=== PATIENT | male | born 2000 | race Caucasian/White ===

== ENCOUNTER 2019-03-21 11:17 | Day surgery (SDC) | payer OTHER ==
[~2019-03-21 11:17] MED LIST: DEXAMETHASONE SOD PHOSPHATE 10 MG/ML 1 ML VIAL IV ONE; HYDROmorphone 0.5 MG/0.5 ML SYRINGE IVP PRN; LACTATED RINGERS 1,000 ML IV SCH; LIDOCAINE 1% 20 ML VIAL (10MG/ML) FOR IV START INTRADERMA PRN; MIDAZOLAM 2 MG/2 ML VIAL IV PRN; ONDANSETRON 4 MG/2 ML VIAL IVP ONE; SCOPOLAMINE 1.5MG/72HR PATCH TRANSDERM ONE
[2019-03-21] MEDS ORDERED: LACTATED RINGERS 1,000 ML IV ONE ×2 (11:44→16:57)
[2019-03-21] MEDS ORDERED: fentaNYL (PF) 50 MCG/ML 2 ML AMP ONE (13:40)
[2019-03-21] MEDS ORDERED: GLYCOPYRROLATE 0.2 MG/ML 2 ML VIAL ONE (13:40)
[2019-03-21] MEDS ORDERED: LIDOCAINE 1% INJ 10MG/ML (20 ML MDV) ONE (13:40)
[2019-03-21] MEDS ORDERED: MIDAZOLAM 2 MG/2 ML VIAL ONE (13:40)
[2019-03-21] MEDS ORDERED: HYDROmorphone (PF) 1 MG/ML ONE (13:40)
[2019-03-21] MEDS ORDERED: PROPOFOL 10 MG/ML 20 ML VIAL IV ONE (13:40)
[2019-03-21] MEDS ORDERED: SUCCINYLCHOLINE CHLORIDE 100 MG/5 ML SYR IV ONE (13:40)
[2019-03-21] MEDS ORDERED: VECURONIUM 10 MG VIAL IV ONE (13:40)
[2019-03-21] MEDS ORDERED: NEOSTIGMINE 1 MG/ML 10 ML VIAL ONE (13:40)
[2019-03-21] MEDS ORDERED: BUPIVACAINE (PF) 0.5% 30 ML VIAL SQ ONE ×2 (14:19→18:06)
[2019-03-21] MEDS ORDERED: LIDOCAINE 1%-EPI 1:100,000 20 ML VIAL SQ ONE ×2 (14:19→18:06)
[2019-03-21 19:08] VITALS: TEMP 97.7
--- NOTE | 2019-03-21 19:48 | XR ---
EXAMINATION TYPE: XR forearm RT DATE OF EXAM: 03/21/2019 COMPARISON: None HISTORY: Postop TECHNIQUE: 2 views FINDINGS: There are plates and screws fixing midshaft fractures of the radius and ulna. Fragments are in anatomic position. There is a cast. Wrist joint and elbow joint appear intact. IMPRESSION: Anatomic reduction. No complicating process seen.
[2019-03-21 20:20] VITALS: BMI 28.1
[2019-03-21] MEDS ORDERED: HYDROcodone/APAP 5-325MG 1 EACH TAB PO PRN (20:31)
[2019-03-21 20:53] VITALS: BP 161/81; PULSE 64; RESP 18
--- NOTE | 2019-03-22 10:01 | XR ---
Fluoroscopy INDICATION: Pain, open reduction internal fixation FINDINGS: Fluoroscopy time: 33 seconds. Images obtained: 7. IMPRESSIONS: 1. Documentation of fluoroscopy.
--- NOTE | 2019-03-22 17:32 | P.OP ---
Date of Procedure: 03/21/19 Preoperative Diagnosis: Displaced fractures of the right radial and ulnar shafts Postoperative Diagnosis: Displaced fractures of the right radial and ulnar shafts Procedure(s) Performed: Open reduction and internal fixation of right radial and ulnar shaft fractures Implants: [employer] ALPS 3.5 mm small fragment locking plates (2) with locking and cortical screws. Anesthesia: DINO local Surgeon: José Regan Building Equipment Operator #1: Johanny Lima Estimated Blood Loss (ml): 200 Pathology: none sent Condition: stable Disposition: PACU Indications for Procedure: The patient is a 18-year-old male who sustained a displaced fractures of his right radial and ulnar shafts after mechanical fall. Treatment options (and associated risks and benefits) were discussed in the office. Surgical treatment was recommended. In preop, additional questions were addressed and he wished to proceed with surgery. Consent forms were signed. The operative site was confirmed and marked in the preoperative holding area. Description of Procedure: The patient was brought to the operating suite and positioned supine with the right arm on an arm board. All bony prominences were well-padded. General anesthesia was administered uneventfully. Prophylactic IV antibiotics were administered. A tourniquet was placed on the operative limb which was then prepped and draped in standard, sterile fashion. A timeout was performed, confirming patient identifiers, the operative side, the sites and the procedures to be performed: all team members expressed agreement. The limb was exsanguinated with an Esmarch and the tourniquet was inflated. Fractures were visualized with intraoperative fluoroscopy and the fracture levels were marked on the skin. Attention was first turned to the radial shaft fracture. A dorsal Lilly approach was utilized. A longitudinal dorsal incision was marked over the fracture site, in line with the lateral epicondyle and Makenzie's tubercle. The skin was sharply incised and crossing vessels were coagulated as needed with electrocautery. A small superficial sensory nerve was identified crossing the surgical field proximally and was mobilized. Full- thickness skin flaps were elevated. The interval between the ECRB and common digital extensors was identified and the overlying fascia was released. Blunt dissection was used to expose the radius. The superficial radial sensory nerve was identified on the undersurface of the mobile wad and was protected throughout the case. The supinator was identified. This was grossly edematous with central disruption of the muscle belly from the proximal radial fragment as well as some disruption of the proximal fibers near its insertion on the radius. The forearm was maximally pronated and the supinator was subperiosteally elevated to expose the radius. The APL and EPB tendons were identified distally and sharply elevated to expose the distal shaft. The fracture ends were cleaned of hematoma and fibrous tissue. There was a small fragment of comminution that was devoid of soft tissue attachments. This was felt to be nonviable and was removed. The bone ends were grasped with reduction clamps and a manual reduction was performed but anatomic alignment was not able to be obtained. The decision was made to expose reduce the ulna. The dorsal wound was irrigated provisionally stapled closed. A longitudinal incision was marked over the subcutaneous border the ulna. The skin was sharply incised and full-thickness skin flaps were elevated. Small sensory nerves on both the proximal and distal ends of the incision were identif ied, mobilized and protected. The interval between the flexor carpi ulnaris (FCU) and extensor carpi ulnaris (ECU) was developed. The fascia was sharply incised. The FCU muscle belly was also markedly edematous and the distal ulnar fragment was palpable within it. The FCU was elevated off the ulna proximally and distally and the fracture ends were exposed. A small butterfly fragment was identified but still retain good soft tissue attachments. There was note of a short, nondisplaced longitudinal split in the distal fragment. The bone ends were cleaned of hematoma and fibrous tissue. A 10-hole 3.5 mm locking compression plate was selected and positioned on the ulna. Manual reduction was attempted using reduction clamps but residual shortening remained. Muscle relaxation was provided by anesthesia and the reduction maneuver was repeated: length was reestablished and the plate was clamped in place. Excellent provisional alignment was achieved. The kahlil were removed from the dorsal wound. The radial fracture was again exposed. A 9-hole plate was placed on the dorsal radial shaft, sitting beneath the outcroppers distally. The plate was clamped to the radius proximally and the forearm was rotated to reduce the distal fragment which was then clamped to the plate. Orthogonal images were obtained, demonstrating satisfactory reduction and alignment of both fractures. Cortical screws were drilled, measured and inserted to secure the plates. The most distal screw hole in the radius was posititioned slightly eccentric and a locking screw was placed instead. One of the proximal screws in the ulnar shaft failed to gain purchase and was replaced with a locking screw. Final x-rays were obtained which revealed satisfactory reduction of both fractures. Images of both the elbow and wrist were obtained, which showed anatomic reduction of both the proximal and distal radioulnar joints. The elbow, forearm and wrist were taken through a full passive range of motion: No popping, crepitus or focal motion restriction was identified. The forearm rotated smoothly with approximately 75 of supination and 65 of pronation. The tourniquet was released after 132 minutes at 250 mmHg was not used for the remainder the case. Good hemostasis was obtained with electrocautery and held pressure. The wounds were copiously irrigated with normal saline. The elevated portion of the supinator was repaired with interrupted 2-0 Vicryl sutures. The subcutaneous tissues were reapproximated with interrupted 3-0 Vicryl suture. The FCU fascia was loosely repaired over the plate with interrupted 2-0 Vicryl sutures. The incisions were closed with interrupted 3-0 nylon suture. Local anesthetic with epinephrine was injected into the perioperative subcutaneous tissues for adjunctive postoperative pain control and hemostasis. The wounds closed without tension and the forearm compartments were soft and compressible at the completion of the case. A sterile dressing was harrison lied followed by a plaster sugartong splint, applied by mn. All sponge, needle and instrument counts were correct at the end of the case. The patient tolerated the procedure well and was taken to the recovery room in stable condition.
== END 2019-03-21 23:21 | disposition home or self-care (01) ==
LOC: OR 11:17 → 1SOBS 18:51 → OR 23:21
PROVIDERS: ATTEND Orthopaedic Surgery
DX: S52.321A Displaced transverse fracture of shaft of right radius, initial encounter for closed fracture (principal); S52.231A Displaced oblique fracture of shaft of right ulna, initial encounter for closed fracture; F17.210 Nicotine dependence, cigarettes, uncomplicated; F32.9 Major depressive disorder, single episode, unspecified; Z97.3 Presence of spectacles and contact lenses; Z91.040 Latex allergy status; Z82.49 Family history of ischemic heart disease and other diseases of the circulatory system; W01.0XXA Fall on same level from slipping, tripping and stumbling without subsequent striking against object, initial encounter; Y93.39 Activity, other involving climbing, rappelling and jumping off
CPT/HCPCS: 25575; 73090; C1713; J1100; J0690; J2405